=== PATIENT | male | born 1950 | race Caucasian/White ===

== ENCOUNTER 2023-12-28 00:44 | Inpatient (IN) ==
[2023-12-28 01:53] LABS: Hematocrit 40.9 % (38-53); Hemoglobin 13.8 g/dL (13.2-16.3); Mean Corpuscular Hemoglobin 28.5 pg (27-33); Mean Corpuscular Hgb Conc 33.8 g/dL (31-36); Mean Corpuscular Volume 84.3 fL (80-97); Mean Platelet Volume 10.9 fL (7.5-11.2); Platelet Count 197 10^3/uL (150-450); Red Blood Count 4.85 10^6/uL (4.06-5.63); Red Cell Distribution Width 14.1 % (12-17); White Blood Count 18.8 10^3/uL (3.6-10.2)
[2023-12-28 01:58] LABS: Activated Partial Thrombo Time 30.9 seconds (26.0-38.0); INR 1.19 (0.83-1.13)
[2023-12-28] MEDS: Piperacillin/Tazobac 3.375 BAG 3.375 GM/100 ML BAG IV ONE (02:00)
[2023-12-28] MEDS: Lactated Ringers 1000 ml BAG 1,000 ML IV SCH ×3 (02:16→21:59)
[2023-12-28 02:17] LABS: Albumin 3.4 g/dL (3.2-5.2); Albumin/Globulin Ratio 1.2 (1-3); C Reactive Protein 319.17 mg/L (<8.01); Calcium 8.6 mg/dL (8.6-10.3); Creatinine, Serum 2.47 mg/dL (0.67-1.17); Globulin 2.8 g/dL (2-4); Potassium 3.5 mmol/L (3.5-5.0); Total Bilirubin 5.4 mg/dL (0.2-1.0); Total Protein 6.2 g/dL (6.4-8.9); eGFR CKD-EPI 27.2 (>60)
[2023-12-28 02:20] LABS: ABS Basophils 0.1 10^3/uL (0.0-0.1); ABS Lymphocytes 0.3 10^3/uL (1.0-4.8); ABS Monocytes 0.4 10^3/uL (0.0-1.1); ABS Neutrophils 17.9 10^3/uL (1.5-7.6); ABS Nucleated RBC 0.02 10^3/ul; Eosinophil % 0.1 %; Lymphocyte % 1.8 %; Nucleated Red Blood Cells % 0.1 %/100WBC (0.0-0.8); RBC Morphology Normal (Normal)
[2023-12-28] MEDS: Vancomycin 1,250 MG in NS 0.9% 250 ml 250 ML IVPB ONE (02:38)
[2023-12-28 02:47] LABS: High Sensitivity Troponin 1 Hr 40 pg/mL (<20)
[2023-12-28 03:41] LABS: Urine Appearance Extra Turbid; Urine Bilirubin 1+ (Negative); Urine Blood 2+ (Negative); Urine Glucose Trace (Negative); Urine Ketones Negative (Negative); Urine Nitrite Negative (Negative); Urine Protein 1+ (>=30 mg/dL) (Negative); Urine Specific Gravity 1.025 (1.002-1.030); Urine Urobilinogen 1+ (Negative); Urine pH 5.5 (5.0-8.0)
[2023-12-28 03:49] LABS: Urine Bacteria Absent /HPF (Absent); Urine Red Blood Cell 2+(6-10/hpf) /HPF (0-Trace); Urine White Blood Cell 3+(>20/hpf) /HPF (0-Trace)
[2023-12-28 03:57] LABS: Urine Color Dark-Yellow
[2023-12-28] MEDS ORDERED: Vancomycin 1,250 MG in NS 0.9% 250 ml 250 ML IVPB ONE (05:00)
[2023-12-28] MEDS ORDERED: Zosyn per Pharmacy NOTE FOLLOW UP SCH (05:00)
[2023-12-28] MEDS ORDERED: Vancomycin per Pharmacy 1 EA NOTE FOLLOW UP SCH (05:00)
[2023-12-28] MEDS: Lactated Ringers 1000 ml BAG 1,000 ML IV ONE (05:36)
[2023-12-28] MEDS: Norepinephrine 4 MG/250mL D5W 4,000 MCG/250 ML BAG IV SCH (06:47)
[2023-12-28] MEDS: Norepinephrine 4 MG/250mL D5W 4,000 MCG/250 ML BAG IV ONE (07:42)
[2023-12-28 07:59] LABS: Direct Bilirubin 2.8 mg/dL (0.03-0.18); Indirect Bilirubin 2.6 mg/dL (0.3-1.0); Magnesium 2.6 mg/dL (1.9-2.7)
[2023-12-28] MEDS: Enoxaparin 30 MG/0.3 ML SYR SUBCUT SCH (08:24)
[2023-12-28] MEDS: ZOSYN 3.375 GM Q8H per EXTENDED INFUSION IV SCH (08:24)
[2023-12-28] MEDS ORDERED: Vancomycin 1,000 MG in NS 0.9% 250 ml 250 ML IVPB ONE (09:00)
[2023-12-28 11:55] LABS: Albumin 3.1 g/dL (3.2-5.2); Albumin/Globulin Ratio 1.3 (1-3); Creatinine, Serum 1.73 mg/dL (0.67-1.17); Globulin 2.4 g/dL (2-4); Potassium 3.6 mmol/L (3.5-5.0); Total Bilirubin 4.1 mg/dL (0.2-1.0); Total Protein 5.5 g/dL (6.4-8.9); eGFR CKD-EPI 41.7 (>60)
[2023-12-28 12:42] LABS: Hepatitis B Surface Antigen Nonreactive (Nonreactive)
[2023-12-28 12:47] LABS: Hepatitis A Ab IgM Negative (Negative)
[2023-12-28] MEDS: Potassium Chlor 20 meq TAB.ER PO ONE (12:47)
[2023-12-28 12:48] LABS: Hepatitis B Core IgM Nonreactive (Nonreactive)
[2023-12-28 13:00] LABS: Hepatitis C Antibody Negative (Negative)
[2023-12-28] MEDS ORDERED: Piperacillin/Tazobac 3.375 BAG 3.375 GM/100 ML BAG IV ONE (13:00)
[2023-12-28] MEDS: Vancomycin 1,250 MG in NS 0.9% 250 ml 250 ML IVPB SCH (20:12)
[2023-12-28] MEDS ORDERED: Vancomycin 750 MG in NS 0.9% 250 ML IVPB SCH (22:00)
[2023-12-29 05:27] LABS: Hematocrit 34.1 % (38-53); Hemoglobin 11.5 g/dL (13.2-16.3); Mean Corpuscular Hgb Conc 33.6 g/dL (31-36); Mean Corpuscular Volume 83.1 fL (80-97); Platelet Count 89 10^3/uL (150-450); Red Blood Count 4.11 10^6/uL (4.06-5.63); White Blood Count 25.8 10^3/uL (3.6-10.2)
[2023-12-29 05:30] LABS: Albumin 2.7 g/dL (3.2-5.2); Albumin/Globulin Ratio 1.2 (1-3); Calcium 7.5 mg/dL (8.6-10.3); Creatinine, Serum 1.4 mg/dL (0.67-1.17); Globulin 2.2 g/dL (2-4); Magnesium 2.3 mg/dL (1.9-2.7); Potassium 3.7 mmol/L (3.5-5.0); Total Bilirubin 3.1 mg/dL (0.2-1.0); Total Protein 4.9 g/dL (6.4-8.9); eGFR CKD-EPI 53.7 (>60)
[2023-12-29 05:35] LABS: ABS Basophils 0.1 10^3/uL (0.0-0.1); ABS Lymphocytes 0.8 10^3/uL (1.0-4.8); ABS Monocytes 0.8 10^3/uL (0.0-1.1); Eosinophil % 0.1 %; Lymphocyte % 3.2 %; Mean Platelet Volume 10.4 fL (7.5-11.2); RBC Morphology Normal (Normal)
[2023-12-29] MEDS: Potassium Chlor 20 meq TAB.ER PO ONE (08:35)
[2023-12-29] MEDS: cefTRIAXone 1 gm/50 mL D5W 1 GM/50 ML BAG IV SCH (14:49)
[2023-12-30 05:32] LABS: Albumin 2.7 g/dL (3.2-5.2); Albumin/Globulin Ratio 1.1 (1-3); Calcium 7.7 mg/dL (8.6-10.3); Creatinine, Serum 1.08 mg/dL (0.67-1.17); Globulin 2.5 g/dL (2-4); Magnesium 2.5 mg/dL (1.9-2.7); Potassium 3.4 mmol/L (3.5-5.0); Total Bilirubin 3.5 mg/dL (0.2-1.0); Total Protein 5.2 g/dL (6.4-8.9); eGFR CKD-EPI 73.4 (>60)
[2023-12-30 06:09] LABS: ABS Basophils 0.1 10^3/uL (0.0-0.1); ABS Eosinophils 0.1 10^3/uL (0.0-0.5); ABS Lymphocytes 1.6 10^3/uL (1.0-4.8); ABS Monocytes 0.6 10^3/uL (0.0-1.1); ABS Neutrophils 10.4 10^3/uL (1.5-7.6); Eosinophil % 0.9 %; Hematocrit 37.1 % (38-53); Hemoglobin 12.4 g/dL (13.2-16.3); Lymphocyte % 12.3 %; Mean Corpuscular Hemoglobin 28.2 pg (27-33); Mean Corpuscular Hgb Conc 33.3 g/dL (31-36); Mean Corpuscular Volume 84.6 fL (80-97); Mean Platelet Volume 11.4 fL (7.5-11.2); Platelet Count 42 10^3/uL (150-450); RBC Morphology Normal (Normal); Red Blood Count 4.38 10^6/uL (4.06-5.63); Red Cell Distribution Width 15.3 % (12-17); White Blood Count 12.9 10^3/uL (3.6-10.2)
[2023-12-30] MEDS ORDERED: Vancomycin Trough Check NOTE FOLLOW UP ONE (19:30)
[2023-12-31 04:39] LABS: Hematocrit 33.4 % (38-53); Hemoglobin 11.2 g/dL (13.2-16.3); Mean Corpuscular Hgb Conc 33.6 g/dL (31-36); Mean Corpuscular Volume 83.3 fL (80-97); Red Blood Count 4.01 10^6/uL (4.06-5.63); Red Cell Distribution Width 14.9 % (12-17); White Blood Count 12.3 10^3/uL (3.6-10.2)
[2023-12-31 05:23] LABS: Albumin 2.5 g/dL (3.2-5.2); Albumin/Globulin Ratio 1.1 (1-3); Calcium 7.5 mg/dL (8.6-10.3); Creatinine, Serum 0.81 mg/dL (0.67-1.17); Globulin 2.2 g/dL (2-4); Magnesium 2.2 mg/dL (1.9-2.7); Potassium 3.4 mmol/L (3.5-5.0); Total Bilirubin 1.8 mg/dL (0.2-1.0); Total Protein 4.7 g/dL (6.4-8.9); eGFR CKD-EPI 94.3 (>60)
[2023-12-31 08:01] LABS: ABS Basophils 0.1 10^3/uL (0.0-0.1); ABS Eosinophils 0.1 10^3/uL (0.0-0.5); ABS Lymphocytes 1.5 10^3/uL (1.0-4.8); ABS Monocytes 0.7 10^3/uL (0.0-1.1); Eosinophil % 1.1 %; Lymphocyte % 11.9 %; Mean Platelet Volume 11.9 fL (7.5-11.2); Platelet Count 60 10^3/uL (150-450); RBC Morphology Normal (Normal)
[2023-12-31] MEDS: Potassium Chlor 20 meq TAB.ER PO ONE (08:10)
[2024-01-01 09:43] LABS: Hematocrit 34.6 % (38-53); Hemoglobin 11.5 g/dL (13.2-16.3); Mean Corpuscular Hemoglobin 27.9 pg (27-33); Mean Corpuscular Hgb Conc 33.2 g/dL (31-36); Mean Corpuscular Volume 83.9 fL (80-97); Mean Platelet Volume 10.5 fL (7.5-11.2); Platelet Count 106 10^3/uL (150-450); Red Blood Count 4.12 10^6/uL (4.06-5.63); Red Cell Distribution Width 15.1 % (12-17); White Blood Count 14.3 10^3/uL (3.6-10.2)
[2024-01-01 10:28] LABS: Albumin 2.6 g/dL (3.2-5.2); Calcium 7.7 mg/dL (8.6-10.3); Creatinine, Serum 0.77 mg/dL (0.67-1.17); Globulin 2.6 g/dL (2-4); Magnesium 2.1 mg/dL (1.9-2.7); Potassium 3.5 mmol/L (3.5-5.0); Total Bilirubin 2.3 mg/dL (0.2-1.0); Total Protein 5.2 g/dL (6.4-8.9); eGFR CKD-EPI 95.7 (>60)
[2024-01-01] MEDS: KCL 20 MEQ/100 ML IVPREMIX 20 MEQ/100 ML BAG IV ONE (10:58)
[2024-01-01 13:53] LABS: ABS Basophils 0.2 10^3/uL (0.0-0.1); ABS Eosinophils 0.2 10^3/uL (0.0-0.5); ABS Lymphocytes 1.5 10^3/uL (1.0-4.8); ABS Monocytes 0.8 10^3/uL (0.0-1.1); ABS Neutrophils 11.7 10^3/uL (1.5-7.6); ABS Nucleated RBC 0.01 10^3/ul; Eosinophil % 1.5 %; Lymphocyte % 10.2 %
[2024-01-02] MEDS: guaiFENesin 100 mg/5 ml LIQ unit dose cup PO PRN (02:15)
[2024-01-02 06:59] LABS: Albumin 2.5 g/dL (3.2-5.2); Calcium 7.7 mg/dL (8.6-10.3); Creatinine, Serum 0.7 mg/dL (0.67-1.17); Globulin 2.4 g/dL (2-4); Total Bilirubin 1.8 mg/dL (0.2-1.0); Total Protein 4.9 g/dL (6.4-8.9); eGFR CKD-EPI 98.5 (>60)
[2024-01-03 08:04] LABS: Hematocrit 33.3 % (38-53); Hemoglobin 11.1 g/dL (13.2-16.3); Mean Corpuscular Hemoglobin 27.9 pg (27-33); Mean Corpuscular Hgb Conc 33.2 g/dL (31-36); Mean Corpuscular Volume 83.9 fL (80-97); Mean Platelet Volume 9.6 fL (7.5-11.2); Platelet Count 266 10^3/uL (150-450); Red Blood Count 3.97 10^6/uL (4.06-5.63); Red Cell Distribution Width 15.1 % (12-17)
[2024-01-03 09:10] LABS: ABS Basophils 0.1 10^3/uL (0.0-0.1); ABS Eosinophils 0.2 10^3/uL (0.0-0.5); ABS Lymphocytes 1.5 10^3/uL (1.0-4.8); ABS Monocytes 0.6 10^3/uL (0.0-1.1); ABS Neutrophils 10.6 10^3/uL (1.5-7.6); ABS Nucleated RBC 0.01 10^3/ul; Eosinophil % 1.5 %; Lymphocyte % 11.8 %; Nucleated Red Blood Cells % 0.1 %/100WBC (0.0-0.8)
[2024-01-03 09:43] LABS: Albumin 2.7 g/dL (3.2-5.2); Calcium 7.7 mg/dL (8.6-10.3); Creatinine, Serum 0.65 mg/dL (0.67-1.17); Globulin 2.7 g/dL (2-4); Potassium 4.2 mmol/L (3.5-5.0); Total Bilirubin 1.7 mg/dL (0.2-1.0); Total Protein 5.4 g/dL (6.4-8.9); eGFR CKD-EPI 100.7 (>60)
[2024-01-03] MEDS: Magnesium Sulfate 2 gm BAG 2 GM/50 ML BAG IVPB ONE (10:23)
[2024-01-03 13:01] VITALS: BP 137/67
[2024-01-03 13:50] LABS: HIT ELISA < 0.050 OD (<0.400); Heparin PF4 Antibody Interp Negative (Negative)
== END 2024-01-03 13:15 | disposition home or self-care (01) | DRG 871 ==
LOC: ED 00:44 → EDHOLD 04:47 → SUATTDRO 04:47 → ICU 05:15 → MEDTELE 12-31 10:31 → MED 12-31 20:44
PROVIDERS: ADMIT Student in an Organized Health Care Education/Training Program; ATTEND Internal Medicine

== ENCOUNTER 2024-02-01 14:52 | Inpatient (IN) ==
[2024-02-01 15:24] LABS: ABS Basophils 0.1 10^3/uL (0.0-0.1); ABS Lymphocytes 0.9 10^3/uL (1.0-4.8); ABS Monocytes 1.2 10^3/uL (0.0-1.1); ABS Neutrophils 11.9 10^3/uL (1.5-7.6); Eosinophil % 0.2 %; Hematocrit 34.8 % (38-53); Hemoglobin 11.5 g/dL (13.2-16.3); Lymphocyte % 6.7 %; Mean Corpuscular Hgb Conc 32.9 g/dL (31-36); Mean Corpuscular Volume 81.9 fL (80-97); Mean Platelet Volume 9.2 fL (7.5-11.2); Platelet Count 319 10^3/uL (150-450); Red Blood Count 4.25 10^6/uL (4.06-5.63); Red Cell Distribution Width 14.6 % (12-17); White Blood Count 14.1 10^3/uL (3.6-10.2)
[2024-02-01 15:27] LABS: Urine Appearance Turbid; Urine Bilirubin 2+ (Negative); Urine Blood Negative (Negative); Urine Color Dark-Yellow; Urine Glucose Negative (Negative); Urine Ketones Negative (Negative); Urine Nitrite Negative (Negative); Urine Protein 1+ (>=30 mg/dL) (Negative); Urine Specific Gravity 1.018 (1.002-1.030); Urine Urobilinogen 1+ (Negative)
[2024-02-01 15:32] LABS: Urine Bacteria Absent /HPF (Absent); Urine Red Blood Cell Trace(0-2/hpf) /HPF (0-Trace); Urine White Blood Cell 2+(11-20/hpf) /HPF (0-Trace)
[2024-02-01 15:48] LABS: ALT 83 U/L (7-52); Albumin 3.6 g/dL (3.2-5.2); Albumin/Globulin Ratio 1.1 (1-3); Alkaline Phosphatase 418 U/L (35-149); Blood Urea Nitrogen 12 mg/dL (6-24); C Reactive Protein 161.63 mg/L (<8.01); CO2 Carbon Dioxide 23 mmol/L (22-32); Chloride 96 mmol/L (101-111); Creatine Kinase 60 U/L (10-223); Creatinine, Serum 0.99 mg/dL (0.67-1.17); Globulin 3.2 g/dL (2-4); Glucose 132 mg/dL (70-100); Lipase 245 U/L (11.0-82.0); Sodium 128 mmol/L (135-145); Total Bilirubin 8.5 mg/dL (0.2-1.0); Total Protein 6.8 g/dL (6.4-8.9); eGFR CKD-EPI 81.4 (>60)
[2024-02-01 15:49] LABS: Anion Gap 9 mmol/L (2-16)
[2024-02-01] MEDS: Lactated Ringers SEPSIS* BAG 2,190 ML IV ONE (16:38)
[2024-02-01] MEDS: Piperacillin/Tazobac 3.375 BAG 3.375 GM/100 ML BAG IV ONE (16:38)
[2024-02-01 17:05] LABS: INR 1.23 (0.83-1.13)
[2024-02-01 18:58] LABS: Direct Bilirubin 4.9 mg/dL (0.03-0.18); Indirect Bilirubin 3.6 mg/dL (0.3-1.0); Total Bilirubin 8.5 mg/dL (0.2-1.0)
[2024-02-02] MEDS ORDERED: Zosyn per Pharmacy NOTE FOLLOW UP SCH ×2 (02:00→11:00)
[2024-02-02] MEDS: ZOSYN 3.375 GM x ONE DOSE over 30 miuntes IV (02:45)
[2024-02-02] MEDS: ZOSYN 3.375 GM Q8H per EXTENDED INFUSION IV SCH ×2 (06:05→23:55)
[2024-02-02] MEDS ORDERED: Polyethylene Glycol 3350 17 GM PACKET PO PRN (10:04)
[2024-02-02 10:39] LABS: ABS Basophils 0.1 10^3/uL (0.0-0.1); ABS Eosinophils 0.3 10^3/uL (0.0-0.5); ABS Lymphocytes 1.2 10^3/uL (1.0-4.8); ABS Monocytes 0.9 10^3/uL (0.0-1.1); ABS Neutrophils 7.2 10^3/uL (1.5-7.6); Eosinophil % 2.9 %; Hematocrit 31.7 % (38-53); Hemoglobin 10.6 g/dL (13.2-16.3); Lymphocyte % 12.1 %; Mean Corpuscular Hemoglobin 27.2 pg (27-33); Mean Corpuscular Hgb Conc 33.3 g/dL (31-36); Mean Corpuscular Volume 81.8 fL (80-97); Mean Platelet Volume 8.7 fL (7.5-11.2); Platelet Count 265 10^3/uL (150-450); Red Blood Count 3.88 10^6/uL (4.06-5.63); Red Cell Distribution Width 14.3 % (12-17); White Blood Count 9.6 10^3/uL (3.6-10.2)
[2024-02-02 10:40] LABS: Ferritin 424.4 ng/mL (24-336)
[2024-02-02] MEDS: Enoxaparin 40 MG/0.4 ML SYR SUBCUT SCH (11:31)
[2024-02-02 11:55] LABS: ALT 66 U/L (7-52); Albumin 3.1 g/dL (3.2-5.2); Alkaline Phosphatase 378 U/L (35-149); Anion Gap 8 mmol/L (2-16); Blood Urea Nitrogen 8 mg/dL (6-24); CO2 Carbon Dioxide 25 mmol/L (22-32); Calcium 8.4 mg/dL (8.6-10.3); Chloride 102 mmol/L (101-111); Creatinine, Serum 0.76 mg/dL (0.67-1.17); Glucose 94 mg/dL (70-100); Sodium 135 mmol/L (135-145); Total Bilirubin 5.3 mg/dL (0.2-1.0); Total Protein 6.1 g/dL (6.4-8.9); eGFR CKD-EPI 96.1 (>60)
[2024-02-02] MEDS: guaiFENesin 100 mg/5 ml LIQ unit dose cup PO PRN (21:44)
[2024-02-03 06:40] LABS: ABS Basophils 0.1 10^3/uL (0.0-0.1); ABS Eosinophils 0.4 10^3/uL (0.0-0.5); ABS Lymphocytes 1.4 10^3/uL (1.0-4.8); ABS Monocytes 0.7 10^3/uL (0.0-1.1); ABS Neutrophils 5.1 10^3/uL (1.5-7.6); Eosinophil % 5.5 %; Hematocrit 30.9 % (38-53); Hemoglobin 10.5 g/dL (13.2-16.3); Mean Corpuscular Hemoglobin 27.9 pg (27-33); Mean Corpuscular Volume 81.9 fL (80-97); Mean Platelet Volume 9.4 fL (7.5-11.2); Platelet Count 243 10^3/uL (150-450); Red Blood Count 3.78 10^6/uL (4.06-5.63); Red Cell Distribution Width 14.7 % (12-17); White Blood Count 7.6 10^3/uL (3.6-10.2)
[2024-02-03 07:05] LABS: Albumin 3.1 g/dL (3.2-5.2); Albumin/Globulin Ratio 1.1 (1-3); Calcium 8.7 mg/dL (8.6-10.3); Creatinine, Serum 0.74 mg/dL (0.67-1.17); Globulin 2.9 g/dL (2-4); Potassium 3.9 mmol/L (3.5-5.0); Total Bilirubin 3.8 mg/dL (0.2-1.0); eGFR CKD-EPI 96.9 (>60)
[2024-02-03] MEDS ORDERED: Midazolam 2 mg/2 ml VIAL 1 mg/ml 2 ml VIAL (2 mg) ONE (09:36)
[2024-02-03] MEDS ORDERED: fentaNYL 250 mcg/5 ml 50 MCG/ML 5 ml VIAL (250 MCG) ONE (09:37)
[2024-02-03] MEDS ORDERED: Desflurane 240 ML INH ONE (10:03)
[2024-02-03] MEDS ORDERED: Dexamethasone IV 4 MG/ML VIAL 1 ml VIAL ONE (10:03)
[2024-02-03] MEDS ORDERED: Lidocaine 2% PF 5 ML VIAL ONE (10:03)
[2024-02-03] MEDS ORDERED: Propofol 10 MG/ML 20 ML BTL ONE (10:03)
[2024-02-03] MEDS ORDERED: Sevoflurane BOTTLE ONE (10:03)
[2024-02-03] MEDS ORDERED: Ondansetron 4 mg VIAL 2 MG/ML 2 ml VIAL ONE (10:03)
[2024-02-03] MEDS ORDERED: Rocuronium 50 mg VIAL 10 mg/ml 5 ml VIAL (50 mg) ONE (10:59)
[2024-02-03] MEDS ORDERED: Bupivacaine 0.25% EPI 200,000 30 ML SDV ONE (11:19)
[2024-02-03] MEDS ORDERED: HYDROmorphone 0.5 MG/0.5 ML SYRINGE ONE (12:13)
[2024-02-03] MEDS ORDERED: Morphine 4 MG/ML VIAL (1 ml) ONE (15:09)
[2024-02-03] MEDS: Morphine 2 MG/ML SYRINGE IV PRN (15:10)
[2024-02-04 05:50] LABS: ABS Monocytes 0.9 10^3/uL (0.0-1.1); ABS Neutrophils 10.5 10^3/uL (1.5-7.6); Hematocrit 28.1 % (38-53); Hemoglobin 9.4 g/dL (13.2-16.3); Lymphocyte % 7.8 %; Mean Corpuscular Hemoglobin 27.6 pg (27-33); Mean Corpuscular Hgb Conc 33.6 g/dL (31-36); Mean Corpuscular Volume 82.2 fL (80-97); Mean Platelet Volume 9.1 fL (7.5-11.2); Platelet Count 277 10^3/uL (150-450); Red Blood Count 3.42 10^6/uL (4.06-5.63); Red Cell Distribution Width 14.4 % (12-17); White Blood Count 12.3 10^3/uL (3.6-10.2)
[2024-02-04 06:09] LABS: Albumin 2.8 g/dL (3.2-5.2); Albumin/Globulin Ratio 1.1 (1-3); Calcium 8.1 mg/dL (8.6-10.3); Creatinine, Serum 0.61 mg/dL (0.67-1.17); Globulin 2.6 g/dL (2-4); Potassium 3.9 mmol/L (3.5-5.0); Total Bilirubin 3.6 mg/dL (0.2-1.0); Total Protein 5.4 g/dL (6.4-8.9); eGFR CKD-EPI 102.7 (>60)
[2024-02-05 07:49] LABS: ABS Basophils 0.1 10^3/uL (0.0-0.1); ABS Eosinophils 0.1 10^3/uL (0.0-0.5); ABS Lymphocytes 1.3 10^3/uL (1.0-4.8); ABS Neutrophils 10.4 10^3/uL (1.5-7.6); Eosinophil % 0.7 %; Hematocrit 28.2 % (38-53); Hemoglobin 9.6 g/dL (13.2-16.3); Lymphocyte % 10.2 %; Mean Corpuscular Hemoglobin 27.8 pg (27-33); Mean Corpuscular Hgb Conc 33.9 g/dL (31-36); Platelet Count 289 10^3/uL (150-450); Red Blood Count 3.44 10^6/uL (4.06-5.63); Red Cell Distribution Width 14.4 % (12-17)
[2024-02-05 08:33] LABS: Albumin 2.6 g/dL (3.2-5.2); Calcium 7.7 mg/dL (8.6-10.3); Creatinine, Serum 0.76 mg/dL (0.67-1.17); Globulin 2.7 g/dL (2-4); Potassium 4.2 mmol/L (3.5-5.0); Total Bilirubin 2.8 mg/dL (0.2-1.0); Total Protein 5.3 g/dL (6.4-8.9); eGFR CKD-EPI 96.1 (>60)
[2024-02-05] MEDS: Sulfamethox/Trimethoprim DS TAB 800/160 mg PO SCH (23:51)
[2024-02-05] MEDS: Cefepime 2 GM in Dextrose 2 GM/50 ML BAG IV SCH (23:52)
[2024-02-06] MEDS: Benzocaine/Menthol LOZ PO PRN (00:48)
[2024-02-06] MEDS: Iohexol 350 (CONTRAST) 500 ML MDV IV ONE (02:40)
[2024-02-06 07:33] LABS: ABS Basophils 0.1 10^3/uL (0.0-0.1); ABS Eosinophils 0.3 10^3/uL (0.0-0.5); ABS Monocytes 0.8 10^3/uL (0.0-1.1); Eosinophil % 2.3 %; Hematocrit 27.5 % (38-53); Hemoglobin 9.3 g/dL (13.2-16.3); Lymphocyte % 7.8 %; Mean Corpuscular Hemoglobin 27.7 pg (27-33); Mean Corpuscular Hgb Conc 33.8 g/dL (31-36); Mean Corpuscular Volume 81.8 fL (80-97); Mean Platelet Volume 9.3 fL (7.5-11.2); Platelet Count 298 10^3/uL (150-450); Red Blood Count 3.36 10^6/uL (4.06-5.63); Red Cell Distribution Width 14.4 % (12-17); White Blood Count 13.1 10^3/uL (3.6-10.2)
[2024-02-06 07:42] LABS: Albumin 2.5 g/dL (3.2-5.2); Albumin/Globulin Ratio 0.9 (1-3); Calcium 7.7 mg/dL (8.6-10.3); Creatinine, Serum 0.63 mg/dL (0.67-1.17); Direct Bilirubin 0.7 mg/dL (0.03-0.18); Globulin 2.7 g/dL (2-4); Indirect Bilirubin 1.6 mg/dL (0.3-1.0); Potassium 3.7 mmol/L (3.5-5.0); Total Bilirubin 2.3 mg/dL (0.2-1.0); Total Protein 5.2 g/dL (6.4-8.9); eGFR CKD-EPI 101.7 (>60)
[2024-02-06] MEDS: Senna TAB 8.6 mg TAB PO PRN (21:06)
[2024-02-07 08:56] LABS: Hematocrit 27.5 % (38-53); Hemoglobin 9.2 g/dL (13.2-16.3); Mean Corpuscular Hemoglobin 27.4 pg (27-33); Mean Corpuscular Hgb Conc 33.6 g/dL (31-36); Mean Corpuscular Volume 81.6 fL (80-97); Mean Platelet Volume 8.3 fL (7.5-11.2); Platelet Count 348 10^3/uL (150-450); Red Blood Count 3.38 10^6/uL (4.06-5.63); Red Cell Distribution Width 14.5 % (12-17); White Blood Count 13.4 10^3/uL (3.6-10.2)
[2024-02-07 09:36] LABS: Albumin 2.5 g/dL (3.2-5.2); Albumin/Globulin Ratio 0.9 (1-3); Calcium 7.8 mg/dL (8.6-10.3); Creatinine, Serum 0.64 mg/dL (0.67-1.17); Direct Bilirubin 0.4 mg/dL (0.03-0.18); Globulin 2.9 g/dL (2-4); Indirect Bilirubin 1.4 mg/dL (0.3-1.0); Potassium 4.1 mmol/L (3.5-5.0); Total Bilirubin 1.8 mg/dL (0.2-1.0); Total Protein 5.4 g/dL (6.4-8.9); eGFR CKD-EPI 101.2 (>60)
[2024-02-08 06:52] LABS: ABS Basophils 0.2 10^3/uL (0.0-0.1); ABS Eosinophils 0.9 10^3/uL (0.0-0.5); ABS Lymphocytes 1.1 10^3/uL (1.0-4.8); ABS Monocytes 0.8 10^3/uL (0.0-1.1); ABS Neutrophils 10.3 10^3/uL (1.5-7.6); Eosinophil % 6.8 %; Hematocrit 28.6 % (38-53); Hemoglobin 9.6 g/dL (13.2-16.3); Lymphocyte % 8.5 %; Mean Corpuscular Hemoglobin 27.3 pg (27-33); Mean Corpuscular Hgb Conc 33.6 g/dL (31-36); Mean Corpuscular Volume 81.3 fL (80-97); Mean Platelet Volume 8.5 fL (7.5-11.2); Platelet Count 431 10^3/uL (150-450); Red Blood Count 3.52 10^6/uL (4.06-5.63); Red Cell Distribution Width 14.6 % (12-17); White Blood Count 13.5 10^3/uL (3.6-10.2)
[2024-02-08 07:10] LABS: Albumin 2.7 g/dL (3.2-5.2); Albumin/Globulin Ratio 0.8 (1-3); Calcium 8.2 mg/dL (8.6-10.3); Creatinine, Serum 0.64 mg/dL (0.67-1.17); Globulin 3.4 g/dL (2-4); Total Bilirubin 1.7 mg/dL (0.2-1.0); Total Protein 6.1 g/dL (6.4-8.9); eGFR CKD-EPI 101.2 (>60)
[2024-02-08 13:22] VITALS: BP 132/64
== END 2024-02-08 15:20 | disposition home or self-care (01) | DRG 854 ==
LOC: ED 14:52 → EDHOLD 02-02 10:04 → INTOOBSV 02-02 10:04 → SSU 02-02 15:15 → SUATTDRO 02-03 14:00 → MED 02-04 18:18
PROVIDERS: ADMIT Internal Medicine; ATTEND Hospitalist